=== PATIENT | male | born 1995 | race Caucasian/White ===

== ENCOUNTER 2025-02-10 22:06 | Emergency (ER) | payer OTHER ==
[~2025-02-10] VITALS: Ht 172.7 cm; Wt 80.4 kg
[2025-02-10 22:11] VITALS: O2SAT 99
[2025-02-10 22:26] VITALS: TEMP 36.8
[2025-02-11] MEDS ORDERED: NAPR-1176 MT (02:21)
[2025-02-11 02:34] VITALS: O2SAT 97
[2025-02-11 02:36] VITALS: BP 148/89; PULSE 66; RESP 19
[2025-02-11] MEDS: KETOROLAC 15MG/ML VIAL IM ONE (02:36)
== END 2025-02-11 02:40 | disposition home or self-care (01) ==
LOC: ER 22:06
DX: S00.83XA Contusion of other part of head, initial encounter (principal); Y04.0XXA Assault by unarmed brawl or fight, initial encounter; Y93.89 Activity, other specified; Y92.89 Other specified places as the place of occurrence of the external cause; Y99.8 Other external cause status
CPT/HCPCS: 99285; 70450; 70486; 96372; J1885